=== PATIENT | female | born 1980 | race Caucasian/White ===

== ENCOUNTER 2017-11-10 19:51 | Emergency (ER) | payer SELFPAY ==
--- NOTE | 2017-11-10 19:51 | DT_ITS ---
This patient was seen during an EMR downtime November 09, 2017 - November 16, 2017. This patient may have a combination of paper and electronic documentation or all paper documentation. All documentation is viewable within the e-chart portion of [facility] for each patient visit.
--- NOTE | 2017-11-10 21:48 | CT_ITS ---
STUDY: CT ABDOMEN AND PELVIS WITHOUT CONTRAST REASON FOR EXAM: Female, 37 years old. LT FLANK PAIN and llq pain. Prev cholecystectomy,tubal ligation and lt oophorectomy. Prelim report scanned in RADIATION DOSAGE (If Supplied By Facility): CTDIvol = ( 12.83 ) mGy, DLP = ( 650.71 ) mGycm TECHNIQUE: Transaxial images were obtained from the dome of the diaphragm to the symphysis pubis without oral contrast, and without intravenous contrast. Sagittal and coronal images were reconstructed. Individualized dose optimization techniques were used for this CT. COMPARISON: April 14, 2016. FINDINGS: The visualized lung bases are unremarkable. The visualized portions of the heart are within normal limits. Normal liver. There is non-visualization of the gallbladder, which may be secondary to either contraction or a prior cholecystectomy. Normal spleen. Normal pancreas. Normal bilateral adrenal glands. Normal right kidney. Normal left kidney. Normal visualized stomach. Normal small intestine. There is diffuse inflammation of the proximal descending colon. This is consistent for diverticulitis. The appendix is visualized and appears normal. There is diffuse atherosclerotic calcification of the abdominal aorta, without a demonstrated aneurysm. Normal inferior vena cava. Normal retroperitoneum. Normal urinary bladder. Normal visualized uterus. There is a linear heterogeneous density in the vagina. This a tampon. There is a ventral hernia containing fat. Old healed fracture of the right inferior pubic ramus. CT/Abdomen/Pelvis without Cont IMPRESSION: Mild diverticulitis of the proximal descending colon. There is no evidence to suggest abscess formation. There is diffuse atherosclerotic calcification of the abdominal aorta, without a demonstrated aneurysm. Electronically Signed: Catracho Ramírez MD at 18:21 EDT , Service support ,
[2017-11-12 18:13] LABS: Bacteria 0 SEEN /hpf (None Seen); Color, Urine Yellow (Yellow); Glucose, Dipstick Normal (Normal); Ketone-Dipstick Negative (Negative); Leukocyte Esterase-Dipstick NEGATIVE /ul (Negative); Mucous, Urine 0 SEEN /hpf (<or=2+); Nitrite-Dipstick NEGATIVE (Negative); Occult Blood-Urine 250 /ul (Negative); Protein-Dipstick 30 mg/dl (Negative); Red Blood Cells-Urine 10-25 SEEN /hpf (0-5); Squamous Epithelial Cells - UA 0-5 SEEN /hpf (5-10); Urine Bilirubin Dipstick Negative (Negative); Urine Clarity Sl Cloudy (Clear); Urine Urobilinogen 1 mg/dl (Normal); White Blood Cells 0 SEEN /hpf (0-5)
[2017-11-12 21:10] LABS: Anion Gap 7 (5-15); BUN 10 mg/dL (7-18); BUN/Creat Ratio 15.4 RATIO (10-20); Calcium,Total 8.4 mg/dL (8.5-10.1); Chloride 111 mmol/L (98-107); Creatinine, Serum 0.65 mg/dL (0.55-1.02); EST Glomerular Filtration Rate 108 mL/min (>60); Est Glom Filt Rate - Afr Amer 131 mL/min (>60); Glucose 86 mg/dL (74-106); Potassium 3.8 mmol/L (3.5-5.1); Sodium Level 141 mmol/L (136-145)
[2017-11-13 10:03] LABS: Absolute Neutrophil Count 5.4 X10^3/uL (2.0-7.7); Basophil% 0.6 % (0-1); Eosinophils% 2.4 % (0-5); Hematocrit 40.7 % (37-47); Hemoglobin 13.6 g/dl (12.0-15.0); Mean Corp Hgb Conc 33.4 g/gl (32-36); Mean Corpuscular Hgb 29.6 pg (27.0-32.0); Mean Corpuscular Volume 88.5 fL (81-99); Mean Platelet Vol. 9.8 fl (6.2-12.0); Monocyte% 8.4 % (0-10); Neutrophil # 5.35 X10^3/uL (2.7-7.7); Neutrophil % 57.5 % (47-70); POSITIVE COUNT NO; POSITIVE DIFFERENTIAL NO; POSITIVE MORPHOLOGY NO; Platelet Count 332 K/mm3 (150-450); RBC Distribution Width CV 13.7 % (11.6-14.6); RBC Distribution Width SD 43.6 fl (35.1-43.9); White Blood Count 9.3 K/mm3 (4.4-11.0)
[2017-11-13 10:04] LABS: Absolute Lymphocyte Count 2.89 X10^3/ul (0.83-4.51); Basophil# 0.06 X10^3/uL; Eosinophil# 0.22 X10^3/uL; Lymphocyte # 2.89 X10^3/ul (4.0); Monocyte# 0.78 X10^3/uL
== END 2017-11-10 23:20 | disposition home or self-care (01) ==
LOC: ED 11-12 09:39
PROVIDERS: Emergency Provider Emergency Medicine
DX: K57.32 Diverticulitis of large intestine without perforation or abscess without bleeding (principal); F17.210 Nicotine dependence, cigarettes, uncomplicated
CPT/HCPCS: 36415; 74176; 80048; 81001; 85025; 96361; 96374; 96375; 99283; J7030; A4216; J2405

== ENCOUNTER 2018-08-26 21:03 | Emergency (ER) | payer SELFPAY ==
[2018-08-26 21:05] VITALS: BP 165/136; PULSE 81; RESP 16; TEMP 37; O2SAT 96; BMI 35.8
--- NOTE | 2018-08-26 21:28 | EKG12_ITS ---
Test Reason : HYPERTENSION Blood Pressure : / mmHG Vent. Rate : 083 BPM Atrial Rate : 083 BPM P-R Int : 120 ms QRS Dur : 086 ms QT Int : 356 ms P-R-T Axes : 009 039 063 degrees QTc Int : 418 ms Normal sinus rhythm Normal ECG Confirmed by JESÚS KENNEDY, DAYAN ([id number]), assignment editor KIYA FUNEZ ([id number]) on 08/30/2018 11:46:56 AM Referred By: DR GIFFORD Confirmed By:DAYAN ESPINOSA MD
--- NOTE | 2018-08-26 21:29 | ED.RN ---
RN CALLED FOR EKG, PULLED OLD EKGS FOR
--- NOTE | 2018-08-26 21:36 | ED.DCSUM_ITS ---
- ER Visit Summary Date of Service: 08/26/18 Chief Complaint: Hypertension History of Present Illness: The patient is a 38 F who presents with elevated blood pressure that was noticed today. Patient states she was at school and they were checking each other's blood pressures. Patient blood pressure was el evated at that time. Patient's instructor told her that she needed to have that evaluated. Patient states her blood pressures at home were 167/110 this morning, 184/112 at 3 PM, 176/109 at 9 PM, and 165/136 upon arrival to the emergency department. Patient denies any chest pain. Patient does admit to some shortness of breath but states she is a smoker. Patient admits to some blurred vision that is been getting worse over the past couple years. Patient denies any acute visual changes. Patient does admit to mild headache and neck pain. Patient denies any other symptoms. Physical Examination: Vital signs are stable. Patient is afebrile. Patient is in no acute distress. Oral mucosa is pink and moist. Neck is supple. Trachea is midline. There is no JVD noted. Heart was regular rate and rhythm. Lungs are clear and equal bilateral. Abdomen is soft. Bowel sounds are normal. There is no tenderness. There is no guarding noted. Skin is warm dry. Cranial nerves II through XII are intact. There are no focal motor or sensory deficits noted. The remaining physical exam is within normal limits. Test Results: EKG showed normal sinus rhythm with a rate of 83. There are no acute ST or T wave changes. This was unchanged compared to previous EKG dated 07/21/2014. CBC, basic metabolic profile, and troponin were obtained and were a ll normal. Chest x-ray does not show any acute cardiopulmonary process. Emergency Department Course and Treatment: Patient has blood pressure during my examination was 142/103. I do not feel the patient's blood pressure needs emergently treated at this time. Patient's blood pressure improved to 136/84 on reevaluation. Patient was instructed to keep a log of her blood pressures and to follow-up with her primary care physician. Patient understood and was agreeable with the plan. All questions were answered. Disposition: Discharge home Impression: Elevated blood pressure This note was generated with [employer] dictation software. It may contain incorrect words, spelling, and punctuation that were not noted in review of the chart prior to signing ED Disposition - Plan for ED Patient: Disposition: Home or Assisted Living Diagnosis: Elevated blood pressure reading without diagnosis of hypertension Instructions: ED Hypertension Poss Referrals: Care Physician,No Primary [Primary Care Provider] - Rian Vargas MD [STAFF PHYSICIAN] - 1-2 Weeks
[2018-08-26 21:40] LABS: Absolute Lymphocyte Count 3.13 X10^3/ul (0.83-4.51); Absolute Neutrophil Count 5.3 X10^3/uL (2.0-7.7); Basophil# 0.05 X10^3/uL; Basophil% 0.5 % (0-1); Eosinophil# 0.16 X10^3/uL; Eosinophils% 1.7 % (0-5); Hematocrit 42.7 % (37-47); Hemoglobin 14.6 g/dl (12.0-15.0); Lymphocyte # 3.13 X10^3/ul (4.0); Lymphocyte % 33.7 % (19-41); Mean Corp Hgb Conc 34.2 g/gl (32-36); Mean Corpuscular Hgb 29.7 pg (27.0-32.0); Mean Corpuscular Volume 86.8 fL (81-99); Monocyte# 0.69 X10^3/uL; Monocyte% 7.4 % (0-10); Neutrophil # 5.26 X10^3/uL (2.7-7.7); Neutrophil % 56.6 % (47-70); Platelet Count 286 K/mm3 (150-450); RBC Distribution Width CV 13.6 % (11.6-14.6); Red Blood Count 4.92 M/mm3 (4.2-5.4); White Blood Count 9.3 K/mm3 (4.4-11.0)
[2018-08-26 21:43] LABS: POSITIVE COUNT NO; POSITIVE DIFFERENTIAL NO; POSITIVE MORPHOLOGY NO
[2018-08-26 21:53] LABS: Anion Gap 5 (5-15); BUN 11 mg/dL (7-18); BUN/Creat Ratio 14.9 RATIO (10-20); Calcium,Total 8.9 mg/dL (8.5-10.1); Chloride 108 mmol/L (98-107); Creatinine, Serum 0.74 mg/dL (0.55-1.02); EST Glomerular Filtration Rate 93 mL/min (>60); Est Glom Filt Rate - Afr Amer 113 mL/min (>60); Estimated Creatinine Clearance 88.14 ml/min; Glucose 99 mg/dL (74-106); Sodium Level 140 mmol/L (136-145)
--- NOTE | 2018-08-26 21:55 | RAD_ITS ---
STUDY: X-RAY CHEST REASON FOR EXAM: Female, 38 years old. Hypertension, headache and chest pain. TECHNIQUE: PA and lateral views of the chest. COMPARISON: Prior comparison studies are not available for review at this time. FINDINGS: The lungs are clear and expanded. There is no demonstrated pleural abnormality. Normal size heart. Normal mediastinum and ayala. Normal visualized pulmonary arteries. Normal visualized aortic arch and descending thoracic aorta. Normal visualized thoracic spine. Normal visualized ribs, clavicles, and shoulders. There is no demonstrated abnormality of the visualized soft tissue structures of the upper abdomen. RAD/Chest PA and Lateral IMPRESSION: No active pulmonary disease. Electronically Signed: Zac Arteaga MD at 22:15 EDT Tel , Service support ,
[2018-08-26 23:01] VITALS: BP 136/84; PULSE 78; RESP 18; O2SAT 99
== END 2018-08-26 23:02 | disposition home or self-care (01) ==
PROVIDERS: Emergency Provider Emergency Medicine
DX: R03.0 Elevated blood-pressure reading, without diagnosis of hypertension (principal); F17.210 Nicotine dependence, cigarettes, uncomplicated; M54.2 Cervicalgia; R51 Headache
CPT/HCPCS: 71046; 80048; 84484; 85025; 93005; 99284; A4216

== ENCOUNTER 2020-07-06 09:49 | Emergency (ER) | payer OTHER, SELFPAY ==
[2020-07-06 09:52] VITALS: BP 125/89; PULSE 88; RESP 17; TEMP 36.8; O2SAT 98; BMI 28.3
--- NOTE | 2020-07-06 10:33 | ED.VISSUMM ---
- ER Visit Summary Date of Service: 07/06/20 Chief Complaint: Abdominal pain History of Present Illness: The patient is a 40 F past medical history. Prior cholecystectomy and exploratory laparotomy for trauma as a child. States the last 2 months she is abdominal pain is primary pressure is between her umbilicus and epigastric area. She thinks she may have a ventral hernia. She denies any nausea, vomiting or diarrhea. She has had mild dysuria which she does not think is directly related. Her last menstrual period was about 3 to 4 weeks ago. She denies any fever or chills. She denies any melena. She denies any recent abdominal trauma. Physical Examination: Middle-aged female no acute distress vital signs stable afebrile. HEENT exam unremarkable. Neck nontender no lymphadenopathy. Lungs clear to auscultation bilateral. Heart regular rhythm no murmur. Abdomen soft. Nondistended. Normal bowel sounds. No peritoneal signs. Right upper and right lower quadrants are unremarkable. There is no signs of trauma. There is a fullness as if she may have a ventral hernia between her umbilicus and epigastric area. There is mild tenderness but not exquisitely tender. There is no signs of obstruction. Patient moving all 4 extremities. No edema. Neurologically she is awake and alert. Test Results: CBC shows normal white count of 10 hemoglobin 14. No bands chemistries unremarkable normal creatinine and gap. Liver enzymes normal. Lipase normal. UA normal. Serum test negative. CAT scan abdomen pelvis with IV contrast only shows no acute abnormality. Read by the radiologist and reviewed by me. There is no obvious incarcerated or strangulated hernia. Radiologist did not mention a ventral hernia in the dictation. Multiple repeat exams patient is doing well on repeat exam at 12:48 PM. Abdomen is benign. No distention. The fullness I felt before is almost resolved. This may be a sliding ventral hernia but there does not appear to be any signs of incarceration or strangulation. She is tolerating it well. She did not want nor did she receive anything for pain. Emergency Department Course and Treatment: Patient with abdominal pain possibly secondary to a ventral hernia. Its not obviously incarcerated or strangulated. CAT scan with IV contrast for imaging and labs are pending. Patient did not want anything for pain at this time. Treatment Plan: Outpatient follow-up with Dr. Yasmine Pryor from the [facility] for evaluation for a possible ventral hernia. Tylenol Motrin for pain. Return if feeling a lot worse. Disposition: Discharge Impression: Acute abdominal pain of uncertain etiology Rule out possible ventral abdominal wall hernia This note was generated with [employer] dictation software. It may contain incorrect words, spelling, and punctuation that were not noted in review of the chart prior to signing ED Disposition - Plan for ED Patient: Referrals: Xin Jones MD [Primary Care Provider] -
--- NOTE | 2020-07-06 10:53 | CT_ITS ---
STUDY: CT ABDOMEN AND PELVIS WITH CONTRAST REASON FOR EXAM: Female, 40 years old. ABDOMINAL PAIN X FEW WEEKS. HX OF KI RADIATION DOSAGE (If Supplied By Facility): CTDIvol = ( 13.11 ) mGy, DLP = ( 677.82 ) mGycm TECHNIQUE: Transaxial images were obtained from the dome of the diaphragm to the symphysis pubis without oral contrast. IV 100mL Isovue-300 was administered. Sagittal and coronal images were reconstructed. Individualized dose optimization techniques were used for this CT. COMPARISON: Comparison is made with prior examination dated 11/10/2017. FINDINGS: Minimal linear atelectasis and/or scarring at the lung bases. The visualized portions of the heart are within normal limits. Normal liver. The patient is status post cholecystectomy. Normal spleen. Normal pancreas. Normal bilateral adrenal glands. Normal right kidney. 1 cm cyst is seen in the upper pole of the left kidney. Normal visualized stomach. Normal small intestine. Normal colon. The appendix is visualized and appears normal. There is scattered atherosclerotic calcification of the abdominal aorta, without a demonstrated aneurysm. Normal inferior vena cava. Normal retroperitoneum. Normal urinary bladder. Small bilateral inguinal hernia containing fat. Normal osseous structures. CT/Abdomen/Pelvis W IV Cont ONLY IMPRESSION: No acute abnormality is seen. Electronically Signed: Yusef Marte MD at 11:14 EST , Service support ,
[2020-07-06 11:41] LABS: Absolute Lymphocyte Count 3.01 X10^3/uL (0.83-4.51); Absolute Neutrophil Count 6.2 X10^3/uL (2.0-7.7); Basophil# 0.07 X10^3/uL; Basophil% 0.7 % (0-1); Eosinophil# 0.21 X10^3/uL; Eosinophils% 2.1 % (0-5); Hematocrit 44.6 % (37-47); Hemoglobin 14.5 g/dL (12.0-15.0); Lymphocyte # 3.01 X10^3/ul (4.0); Lymphocyte % 29.5 % (19-41); Mean Corp Hgb Conc 32.5 g/dL (32-36); Mean Corpuscular Hgb 29.5 pg (27.0-32.0); Mean Corpuscular Volume 90.7 fL (81-99); Mean Platelet Vol. 9.2 fl (6.2-12.0); Monocyte# 0.68 X10^3/uL; Monocyte% 6.7 % (0-10); NRBC Flagged by Analyzer 0 % (0-5); Neutrophil # 6.19 X10^3/uL (2.7-7.7); Neutrophil % 60.7 % (47-70); Platelet Count 250 K/mm3 (150-450); RBC Distribution Width SD 46.8 fl (35.1-43.9); Red Blood Count 4.92 M/mm3 (4.2-5.4); White Blood Count 10.2 K/mm3 (4.4-11.0)
[2020-07-06 11:57] LABS: ALB/GLOB Ratio 0.9 RATIO (0.9-2.4); AST(SGOT) 9 U/L (15-37); Alanine Aminotransfer ALT/SGPT 20 U/L (13-56); Albumin, Serum 3.3 g/dL (3.2-5.0); Alkaline Phosphatase 53 U/L (45-117); Anion Gap 5 (5-15); BUN 14 mg/dL (7-18); BUN/Creat Ratio 19.6 RATIO (10-20); Calcium,Total 8.5 mg/dL (8.5-10.1); Chloride 110 mmol/L (98-107); Creatinine, Serum 0.71 mg/dL (0.55-1.02); EST Glomerular Filtration Rate 96 mL/min (>60); Est Glom Filt Rate - Afr Amer 116 mL/min (>60); Globulin 3.5 g/dL (2.2-4.2); Glucose 92 mg/dL (74-106); Internal QC Validated? YES +Cl - CLEAR BKGD; Lipase 133 U/L (73-393); Potassium 4.1 mmol/L (3.5-5.1); Pregnancy, Serum, hCG Quali. NEGATIVE Negative; Protein, Total 6.8 g/dL (6.4-8.2); Sodium Level 138 mmol/L (136-145)
[2020-07-06 12:30] LABS: Bacteria 0 SEEN /hpf (None Seen); Mucous, Urine 0 SEEN /hpf (<or=2+)
[2020-07-06 12:38] LABS: Color, Urine Yellow (Yellow); Glucose, Dipstick Normal (Normal); Ketone-Dipstick Negative (Negative); Leukocyte Esterase-Dipstick 25 /ul (Negative); Nitrite-Dipstick Negative (Negative); Occult Blood-Urine 10 /ul (Negative); Protein-Dipstick Negative (Negative); Specific Gravity, Urine 1.015 (1.002-1.030); Urine Bilirubin Dipstick Negative (Negative); Urine Clarity Sl. Cloudy (Clear); Urine Urobilinogen Normal (Normal)
[2020-07-06 12:53] LABS: Red Blood Cells-Urine 0-5 SEEN /hpf (0-5); Squamous Epithelial Cells - UA 0-5 SEEN /hpf (5-10); White Blood Cells 0-5 SEEN /hpf (0-5)
--- NOTE | 2020-07-06 12:55 | ED.DEP ---
ED Disposition - Plan for ED Patient: Disposition: Home or Assisted Living Instructions: ED Abdominal Pain Unkn Cause Fem Referrals: Yasmine Pryor MD [STAFF PHYSICIAN] - As soon as possible Additional Instructions: Today all your labs and CAT scans were unremarkable. This may be a ventral abdominal wall hernia. Tylenol and Motrin for pain. Follow-up with Dr. Yasmine Pryor of the [facility] in [place] call her office for an appointment to be seen as soon as possible. Return emergency department if feeling a lot worse, you have increasing pain, abdominal distention or intractable vomiting.
[2020-07-06 13:05] VITALS: BP 155/104; PULSE 78; RESP 18; O2SAT 96
== END 2020-07-06 13:06 | disposition home or self-care (01) ==
PROVIDERS: Emergency Provider Emergency Medicine; PCP Internal Medicine
DX: R10.9 Unspecified abdominal pain (principal); Z90.49 Acquired absence of other specified parts of digestive tract
CPT/HCPCS: 74177; 80053; 81001; 83690; 84703; 85025; 99285; Q9967; A4216

== ENCOUNTER 2020-10-10 00:24 | Emergency (ER) | payer OTHER, SELFPAY ==
[2020-10-10 00:24] VITALS: BP 152/89; PULSE 74; RESP 16; TEMP 35.6; O2SAT 100; BMI 30.7
--- NOTE | 2020-10-10 00:48 | EX.ED.UPPERE ---
HPI History of Present Illness Chief Complaint: Upper Extremity Injury Informant: patient Onset/Context/Timing Onset: Days Context: Gradual Onset Timing: Intermittent Quality of Pain: Sharp and Stabbing Current Severity: Moderate Maximum Severity: Moderate Associated Symptoms Associated Symptoms: Negative for Parasthesia, Weakness and Loss of Funtion Narrative Narrative: Patient presents to the emergency department with right posterior shoulder pain that radiates down into her elbow. She states is been going on for a week but is gotten worse over the past 2 days. She states that she did have similar symptoms a few years ago that they felt was secondary to her neck. She states if she tries to raise her arm, she feels pinching in her neck and it makes his symptoms worse. She is not had weakness of the arm. She denies any tingling in the fingers. She had no trauma. PFSH PFSH no medical history Home Medications multivitamin 1 ea PO DAILY 07/06/20 [History Last Taken Unknown] ranitidine HCl 75 mg PO DAILY 07/06/20 [History Last Taken Unknown] cyclobenzaprine 10 mg PO TID PRN #20 tablet 10/10/20 [Rx Last Taken Unknown] hydrocodone-acetaminophen 1 tab PO Q6H PRN PRN 3 Days #10 tablet 10/10/20 [Rx Last Taken Unknown] methylprednisolone 4 mg PO UD #1 box 10/10/20 [Rx Last Taken Unknown] Allergy/AdvReac Type Severity Reaction Status Date / Time morphine AdvReac Chest Verified 07/06/20 09:50 tightness Social History Smoking Status: Current every day smoker ROS ROS ED Constitutional Constitutional ED: Denies chills or fever(s) Eyes Eyes: Denies blurry vision or change in vision ENT ENT ED: Denies ear pain or sore throat Cardiovascular Cardiovascular: Denies chest pain or palpitations Respiratory/Chest Respiratory/Chest: Denies cough, dyspnea or dyspnea on exertion Gastrointestinal Gastrointestinal: Denies abdominal pain, nausea or vomiting Genitourinary Genitourinary ED: Denies dysuria or urinary frequency Musculoskeletal Musculoskeletal: Reports neck pain; Denies arthralgias or myalgias Integumentary Denies rash Neurologic Neurologic: Denies headache(s) or paresthesias Psychiatric Psychiatric: Denies anxiety or depression Endocrine Endocrinology: Denies polydipsia or polyuria Allergic/Immunologic Allergic/Immunologic ED: Denies urticaria EXAM Physical Exam Const Vital Signs: 10/10/20 00:24 Temperature 96.1 F L Temperature Source Temporal Pulse Rate 74 Respiratory Rate 16 Blood Pressure 152/89 H Blood Pressure Mean 110 Pulse Ox 100 Oxygen Delivery Method Room Air Positive well nourished and well developed General Appearance ED: well developed HEENT Reports normocephalic, head/scalp atraumatic and moist mucous membranes Eyes PERRL and EOMs intact bilaterally Neck full ROM, no lymphadenopathy and supple General: Negative for tenderness Chest Wall inspection of chest normal Resp normal respiratory effort and clear to auscultation bilaterally Cardio regular rate, regular rhythm and no murmurs GI normal to inspection, nondistended, normoactive bowel sounds Palpation: Negative for tender, guarding or rebound tenderness present Back/Spine no CVA tenderness Back/Spine Narrative: Patient has some paraspinal tenderness in the cervical area on the right. She has 5 out of 5 strength of cranial nerve XI. She has normal sensation of the axillary nerve. She does have diminished strength secondary to pain with abduction of the shoulder. Reflexes are normal. Cervical Spine: Negative for cervical spine tenderness Thoracic Spine / Upper Back: Negative for thoracic spinal tenderness Extremity normal to inspection General Extremety ED: Negative for tenderness Neuro oriented x3 and CN's II-XII intact bilaterally Neuro Narrative: No focal deficits appreciated. Sensorium / Orientation: alert Psych mental status grossly normal Skin no rashes or lesions noted, no wounds and skin turgor normal MDM MDM MDM Narrative Medical decision making narrative: The patient symptoms do seem consistent with cervical radiculopathy. She has no weakness. She has normal reflexes. She had no injury. I did obtain plain films of the shoulder and of the neck. There is some chronic change, but no evidence of fracture or dislocation. These reviewed by both myself and the radiologist. At this point, and going to treat the patient with analgesics and anti-inflammatories. I will give her follow-up with orthopedics for reevaluation. She is comfortable with this plan of care. Impression 1. Cervical radiculopathy Discharge Plan Triage Chief Complaint: Upper Extremity Injury ED Provider: Julian Cedeno Dx/Rx/DC Orders Instructions: ED Radiculopathy, Cervical Prescriptions: New cyclobenzaprine [cyclobenzaprine] 10 MG tablet 10 mg PO TID PRN (Reason: Muscle Spasm) Qty: 20 RF: 0 hydrocodone-acetaminophen [hydrocodone-acetaminophen] 1 TABLET tablet 1 tab PO Q6H PRN PRN (Reason: Pain) 3 Days Qty: 10 RF: 0 methylprednisolone [methylprednisolone] 4 MG tablets,dose pack 4 mg PO UD Qty: 1 RF: 0 No Action multivitamin 1 EACH tablet 1 ea PO DAILY RF: 0 ranitidine HCl 75 MG tablet 75 mg PO DAILY RF: 0 Primary Care Provider: Xin Jones Referrals: Xin Jones MD [Primary Care Provider] -
[2020-10-10] MEDS: Naproxen 500 MG Tablet PO (00:50)
--- NOTE | 2020-10-10 01:05 | RAD_ITS ---
STUDY: X-RAY - CERVICAL SPINE REASON FOR EXAM: Female, 40 years old. pain TECHNIQUE: 3 view(s) of the cervical spine were obtained. COMPARISON: None FINDINGS: Normal anterior atlantoaxial articulation. Normal odontoid process. There is straightening of the normal cervical lordosis. This may be associated with muscular spasm versus positioning. Normal vertebral bodies and endplates. Normal disc space heights. Normal visualized intervertebral neuroforamina. The soft tissue structures are unremarkable. There is no demonstrated fracture of the cervical spine. RAD/Cerv Spine 2 or 3 Views IMPRESSION: Straightening of the cervical lordosis. Otherwise unremarkable x-ray examination of the visualized cervical spine. Electronically Signed: Tatyana Nickerson MD at 1:38 EDT , Service support ,
--- NOTE | 2020-10-10 01:11 | RAD_ITS ---
STUDY: X-RAY - RIGHT SHOULDER REASON FOR EXAM: Female, 40 years old. arm pain x 1 week, shoulder blade numb TECHNIQUE: 3 view(s) of the shoulder. COMPARISON: None. FINDINGS: There is mild degenerative arthrosis of the glenohumeral articulation. Normal acromioclavicular joint. Normal acromion. Normal humeral head and visualized proximal humerus. There is periarticular soft tissue calcification consistent with a calcific tendinitis. There is no demonstrated fracture. Normal visualized pulmonary apex. RAD/Shoulder min 2 Views IMPRESSION: Mild calcific tendinitis. Mild degenerative disease. No acute fracture or subluxation. Electronically Signed: Tatyana Nickerson MD at 1:38 EDT , Service support ,
== END 2020-10-10 01:36 | disposition short-term general hospital (02) ==
PROVIDERS: Emergency Provider Emergency Medicine; PCP Internal Medicine
DX: M54.12 Radiculopathy, cervical region (principal); F17.200 Nicotine dependence, unspecified, uncomplicated
CPT/HCPCS: 72040; 73030; 99283

== ENCOUNTER 2021-04-30 16:02 | Emergency (ER) | payer OTHER, SELFPAY ==
[2021-04-30 16:04] VITALS: BP 149/96; PULSE 105; RESP 18; TEMP 36.1; O2SAT 97; BMI 31.6
--- NOTE | 2021-04-30 16:21 | CT_ITS ---
STUDY: CT BRAIN WITHOUT CONTRAST REASON FOR EXAM: Female, 40 years old. Severe headache RADIATION DOSAGE (If Supplied By Facility): CTDIvol = ( 47.06 ) mGy, DLP = ( 819.74 ) mGycm TECHNIQUE: Transaxial CT imaging of the brain was performed without administration of intravenous contrast material. Individualized dose optimization techniques were used for this CT. COMPARISON: No relevant priors. FINDINGS: Normal soft tissue structures. Normal calvarium. Normal size ventricles and extra-axial spaces for the patient''s age. Normal white matter tracts of the cerebral hemispheres. Normal basal ganglia and thalami. Normal brainstem. Normal cerebellum. There is no intracranial hemorrhage. There are no findings of an acute ischemic infarction. Normal visualized paranasal sinuses. CT/Brain/Head without Contrast IMPRESSION: Normal unenhanced CT scan of the brain. Electronically Signed: Jonah Cooper MD at 17:16 EST , Service support ,
--- NOTE | 2021-04-30 16:22 | CT_ITS ---
STUDY: CT CERVICAL SPINE WITHOUT CONTRAST REASON FOR EXAM: Female, 40 years old. Headache and neck pain RADIATION DOSAGE (If Supplied By Facility): CTDIvol = ( 18.16 ) mGy, DLP = ( 381.65 ) mGycm TECHNIQUE: High resolution transaxial imaging was performed without contrast material. Sagittal and coronal images were reconstructed. Individualized dose optimization techniques were used for this CT. COMPARISON: None FINDINGS: Normal craniovertebral junction. Normal anterior atlantoaxial articulation. Normal odontoid process. There is straightening of the normal cervical lordosis. Normal vertebral bodies and posterior osseous elements. C2-3: Normal endplates. Normal disc height and morphology. Normal central canal and intervertebral neuroforamina. C3-4: Normal endplates. Normal disc height and morphology. Normal central canal and intervertebral neuroforamina. C4-5: Normal endplates. Normal disc height and morphology. Normal central canal and intervertebral neuroforamina. C5-6: Normal endplates. Normal disc height and morphology. Normal central canal and intervertebral neuroforamina. C6-7: Normal endplates. Normal disc height and morphology. Normal central canal and intervertebral neuroforamina. C7-T1: Normal endplates. Normal disc height and morphology. Normal central canal and intervertebral neuroforamina. Normal visualized soft tissue structures. CT/Spine Cervical without Contras IMPRESSION: Normal unenhanced CT examination of the cervical spine. Electronically Signed: Jonah Cooper MD at 17:17 EST , Service support ,
--- NOTE | 2021-04-30 16:23 | EX.ED.VIS.HA ---
HPI History of Present Illness Chief Complaint: Headache Informant: patient Onset/Context/Timing Onset: Weeks (2-3) Context: Gradual Timing: Waxes and wanes Quality -Headache: Positive for Sharp Location: Right side of head and neck Worsened by: Nothing Relieved by: Nothing Associated Symptoms/Injury Associated Symptoms: Positive for Nausea and Numbness; Negative for Fever, Vomiting, Sore Throat, Sinus Pressure, Tingling, Preceding Aura, Visual Changes, Blurred Vision, Photophobia and Visual Loss Injury - MYLES: Negative for Direct Trauma Narrative Narrative: Patient presents with headache for the past 2 to 3 weeks. Patient states she felt a knot in the right side of her neck. Patient states the pain radiates from there up into her head. Patient states it is over the right side of her head. Patient states it has been waxing and waning over the past 2 to 3 weeks. Patient states she has been taking Tylenol and ibuprofen at home with minimal relief. Patient states nothing makes it better nothing makes it worse. Patient describes her pain as sharp. Patient states she has had some nausea but denies any vomiting. Patient also admits to some numbness over the plantar aspect of her right great toe. Patient denies any trauma or injury. PFSH PFS Home Medications multivitamin 1 ea PO DAILY 07/06/20 [History Last Taken Unknown] ranitidine HCl 75 mg PO DAILY 07/06/20 [History Last Taken Unknown] cyclobenzaprine 10 mg PO TID PRN #20 tablet 10/10/20 [Rx Last Taken Unknown] Allergy/AdvReac Type Severity Reaction Status Date / Time morphine AdvReac Chest Verified 04/30/21 16:05 tightness Surgical History History of cholecystectomy History of oophorectomy History of oophorectomy, unilateral Social History Smoking Status: Current every day smoker tobacco type: cigarettes ROS ROS ED Constitutional Constitutional ED: Denies chills or fever(s) Eyes Eyes: Denies blurry vision or change in vision ENT ENT ED: Denies rhinorrhea or sore throat Cardiovascular Cardiovascular: Denies chest pain or palpitations Respiratory/Chest Respiratory/Chest: Reports dyspnea; Denies cough Gastrointestinal Gastrointestinal: Reports nausea; Denies vomiting Genitourinary Genitourinary ED: Denies dysuria or hematuria Musculoskeletal Musculoskeletal: Reports back pain and neck pain Integumentary Reports rash; Denies abscess Neurologic Neurologic: Reports headache(s); Denies weakness Allergic/Immunologic Allergic/Immunologic ED: Denies mouth swelling or urticaria EXAM Physical Exam Const Vital Signs: 04/30/21 16:04 Temperature 97 F L Temperature Source Temporal Pulse Rate 105 H Respiratory Rate 18 Blood Pressure 149/96 H Blood Pressure Mean 113 Pulse Ox 97 Oxygen Delivery Method Room Air Positive well nourished and well developed General Appearance ED: well developed HEENT Reports moist mucous membranes Eyes PERRL and EOMs intact bilaterally Neck supple and no JVD Neck Narrative: There is a tender right posterior cervical lymph node. There is no erythema. There is no fluctuance. It is mobile. Resp normal respiratory effort and clear to auscultation bilaterally Cardio regular rate and regular rhythm Neuro oriented x3, CN's II-XII intact bilaterally and no sensory deficits noted Sensorium / Orientation: awake and alert Speech: speech normal Motor Exam: strength 5/5 throughout Psych mental status grossly normal MDM MDM MDM Narrative Medical decision making narrative: Patient was given IV fluids, Reglan, and Benadryl. Patient is feeling better on reevaluation. CT scan of the brain was obtained. There is no acute intracranial abnormality. CT scan of the cervical spine was obtained. There is no acute process. These were interpreted by the radiologist and reviewed by myself. Patient was instructed to rest in a dark quiet room. Patient was advised that the tender area on the right paracervical area is a swollen lymph node. Patient was instructed to follow-up with her primary care physician in 5 to 7 days. Patient understood and was agreeable with the plan. All questions were answered. Radiography Diagnostic Testing: Clinical Impression(s) from Imaging Studies Brain CT 04/30/21 16:21 IMPRESSION: Normal unenhanced CT scan of the brain. Electronically Signed: Jonah Cooper MD at 17:16 EST , Service support , Cervical Spine CT 04/30/21 16:22 IMPRESSION: Normal unenhanced CT examination of the cervical spine. Electronically Signed: Jonah Cooper MD at 17:17 EST , Service support , Discharge Plan Triage Chief Complaint: Headache ED Provider: Abraham Alberts Dx/Rx/DC Orders Clinical Impression: Headache Instructions: ED Headache Unspecified Prescriptions: No Action multivitamin 1 EACH tablet 1 ea PO DAILY RF: 0 ranitidine HCl 75 MG tablet 75 mg PO DAILY RF: 0 cyclobenzaprine [cyclobenzaprine] 10 MG tablet 10 mg PO TID PRN (Reason: Muscle Spasm) Qty: 20 RF: 0 Primary Care Provider: Xin Jones Referrals: Xin Jones MD [Primary Care Provider] - 5-7 Days Disposition Disposition: Home, Self Care
[2021-04-30] MEDS: 0.9% Normal Saline 1,000 ML 999 ML IV (16:38)
[2021-04-30] MEDS: DiphenhydrAMINE 50 MG/ML Syringe 25 MG IV (16:38)
[2021-04-30] MEDS: Metoclopramide 10 MG/2 ML Vial IV (16:41)
== END 2021-04-30 19:28 | disposition home or self-care (01) ==
PROVIDERS: Emergency Provider Emergency Medicine; PCP Internal Medicine
DX: R51.9 Headache, unspecified (principal); M54.9 Dorsalgia, unspecified; M54.2 Cervicalgia; R11.0 Nausea; F17.210 Nicotine dependence, cigarettes, uncomplicated; R20.0 Anesthesia of skin
CPT/HCPCS: 70450; 72125; 96361; 96374; 96375; 99283; J7030; A4216

== ENCOUNTER → 2022-04-18 | Outpatient (CLI) | payer OTHER, SELFPAY ==
--- NOTE | 2022-04-18 08:43 | BI_ITS ---
MAMMOGRAPHY - BILATERAL DIAGNOSTIC REASON FOR EXAM: Female, 41 years old. Palpable lump at the 2 o''clock position of the right breast. PERTINENT HISTORY: Sister with breast cancer. TECHNIQUE: Digital bilateral breast adriana (3D mammographic acquisition) in the CC and MLO projections. 2-D mediolateral oblique (MLO) and craniocaudad (CC) views of both breasts were obtained. CAD: Full Field Digital Mammography with Computer Added Detection was performed. COMPARISON: Comparison is made with prior examination of 02/24/2017. FINDINGS: Breast Composition: The breasts are heterogeneously dense, which may obscure small masses. Asymmetry of breast tissue where more breast tissue is seen in the upper central medial aspect of the right breast. This corresponds to the palpable abnormality. Correlation with ultrasound is recommended. No other significant abnormalities are identified. BI/DIAG MAMM W/CAD, BILAT IMPRESSION: Asymmetrical breast tissue where more breast tissue is seen in the upper central medial aspect of the right breast. Correlation with ultrasound is recommended. ASSESSMENT CATEGORY: BIRADS Category 0: Incomplete. Need additional imaging evaluation. A letter regarding these results will be sent to the patient by the facility within 30 days. Approximately 10% of breast cancers are not detected by mammography. A normal mammogram should not delay biopsy of a clinically suspicious abnormality. Electronically Signed: Yusef Marte MD at 13:02 EST ,
--- NOTE | 2022-04-18 08:43 | US_ITS ---
STUDY: ULTRASOUND BREAST - RIGHT REASON FOR EXAM: Female, 41 years old. Palpable lump in the right breast. TECHNIQUE: Axial and longitudinal images of the RIGHT breast were performed with a high resolution ultrasound transducer. # OF IMAGES: 24 COMPARISON: Comparison is made with prior mammogram done earlier today. FINDINGS: RIGHT Breast: The region of the palpable abnormality in the right breast was examined with ultrasound. There is heterogeneous fibroglandular tissue. No solid or cystic mass lesion is seen. US/Breast Limited Unilateral IMPRESSION: Heterogeneous fibroglandular tissue. No solid or cystic mass lesion is seen. ASSESSMENT CATEGORY: BIRADS Category 2: Benign. A letter regarding these results will be sent to the patient by the facility within 30 days. Electronically Signed: Yusef Marte MD at 13:03 EST ,
== END | disposition home or self-care (01) ==
LOC: OPUS 08:41
PROVIDERS: PCP Internal Medicine; Visit Provider Nurse Practitioner
DX: N63.11 Unspecified lump in the right breast, upper outer quadrant (principal); R59.9 Enlarged lymph nodes, unspecified
CPT/HCPCS: 76642; 77062; 77066; G0279